=== PATIENT | female | born 1995 | race Caucasian/White ===

== ENCOUNTER 2016-12-31 23:40 | Emergency (ER) | payer OTHER ==
[~2016-12-31] VITALS: Ht 175.3 cm; Wt 68.0 kg
[2017-01-01] MEDS ORDERED: SODIUM BICARBONATE 4.2 % (NEUT) 5 ML VIAL TP ONE (00:45)
[2017-01-01] MEDS ORDERED: LIDOCAINE HCL 2% 20 ML VIAL TP ONE (00:45)
[2017-01-01] MEDS ORDERED: VANCOMYCIN IV 1,000 MG in IV DEXTROSE 5% 250 ML IV ONE (00:45)
[2017-01-01] MEDS ORDERED: LET TOPICAL SOLUTION 8 ML UDC TOP ONE (00:45)
[2017-01-01] MEDS ORDERED: KETOROLAC TROMETHAMINE 30 MG INJ IVP ONE (00:45)
--- NOTE | 2017-01-01 00:50 | NUR ---
Pt is received alert, responsive as she came in c/o left groin Abscess with redness, swelling , warth with sever apin. Her care continue as she will be monitor.
[2017-01-01] MEDS ORDERED: KETOROLAC TROMETHAMINE 30 MG INJ ONE (01:08)
[2017-01-01] MEDS ORDERED: LIDOCAINE HCL 2% 20 ML VIAL ONE (01:09)
[2017-01-01] MEDS ORDERED: LET TOPICAL SOLUTION 8 ML UDC ONE (01:10)
[2017-01-01] MEDS ORDERED: VANCOMYCIN IV 200 ML ONE (01:39)
--- NOTE | 2017-01-01 01:48 | NUR ---
Pt remain alert, responsive as she is been medicated for pain and also started her on antibiotic therapy Vancom 1mg IVPB, also she is due for and I/D. pt care continue while monitor.
--- NOTE | 2017-01-01 02:30 | NUR ---
Pt is been discharge to [facility] with instructions and perscription given for Bactrim DS 800-160mg po 1tab q12hrs with no s/s off distress or c/o pain.
[2017-01-01 02:45] VITALS: BP 107/78
== END 2017-01-01 02:35 | disposition home or self-care (01) ==
LOC: ER 23:45
DX: L02.214 Cutaneous abscess of groin (principal); F17.200 Nicotine dependence, unspecified, uncomplicated
CPT/HCPCS: 10060; 96365; 96375; 99284; A4663; J1885; J3370; J3490